=== PATIENT | female | born 1975 | race Hispanic/Latino ===

== ENCOUNTER 2022-06-14 12:39 | Emergency (ER) | payer BC, OTHER ==
--- OUTSIDE RECORDS SUMMARY | 2022-06-14 12:42 | XMS REPORT | Continuity of Care Document ---
:1975 Author Organization [facility] t Address [address] [place] [address] [place] [id number] Care Team Providers Name Role Phone VALENTINA CARVAJAL Attending Clinician Unavailable Payers Payer Name Policy Type Policy Number Effective Date Expiration Date S alexandro [facility] [id number] 2019 00:00:00 Problems This patient has no known problems. Allergies, Adverse Reactions, Alerts Allergy Allergy Status Severity Reaction(s) Onset Inactive Treating Comm ents Source Name Type Date Date Clinician NO KNOWN Drug Active [facility] ALLERG[facility] Medications This patient has no known medications. Procedures This patient has no known procedures. Encounters Start End Encounter Admission Attending Care Care Encounter Source Date/Time Date/Time Type Type Clinicians Facility Department ID 2020-01-03 2020-01-03 Outpatient R [facility] [id number] [facility] 11:20:00 11:20:00 VAL[facility] Results This patient has no known results.
[2022-06-14] MEDS ORDERED: TETANUS & DIPHTHERIA TOX,ADULT 0.5 ML VIAL ONE (13:27)
[2022-06-14] MEDS ORDERED: HYDROCODONE/APAP 5/325 MG TAB ONE (14:27)
--- NOTE | 2022-06-14 14:50 | RAD REPORT ---
EXAM DESCRIPTION: RAD -Hand Left 3 View - 06/14/2022 2:24 pm CLINICAL HISTORY: Left hand pain status post injury FINDINGS: No fracture or dislocation is seen. Soft tissue laceration distal aspect of the second distal phalanx. Radiopaque foreign body is not see n
--- NOTE | 2022-06-14 14:51 | ER ---
Nurse's Notes [facility] Name: Julisa Valdez Age: 46 yrs Sex: Female : 1975 Arrival Date: 06/14/2022 Time: 12:39 Bed 13 Private MD: Jefferson Lincoln F Diagnosis: Laceration without foreign body of left index finger with damage to nail Presentation: 06/14 12:55 Chief complaint: Patient states: "I cut my finger last night cutting up some aa5 vegetables". Reports laceration to left index finger. Coronavirus screen: At this time, the client does not indicate any symptoms associated with coronavirus-19. Ebola Screen: Patient denies travel to an Ebola-affected area in the 21 days before illness onset. Initial Sepsis Screen: Does the patient meet any 2 criteria? No. Patient's initial sepsis screen is negative. Does the patient have a suspected source of infection? No. Patient's initial sepsis screen is negative. Risk Assessment: Do you want to hurt yourself or someone else? Patient reports no desire to harm self or others. Onset of symptoms was June 13, 2022. 12:55 Method Of Arrival: Ambulatory aa5 12:55 Acuity: ANTOINE 4 aa5 Triage Assessment: 13:25 General: Appears in no apparent distress. uncomfortable, Behavior is calm, cooperative, nj1 appropriate for age. 13:25 Neuro: Level of Consciousness is awake, alert, obeys commands, Oriented to person, nj1 place, time, situation. Cardiovascular: Patient's skin is warm and dry. Respiratory: Airway is patent Respiratory effort is even, unlabored. Musculoskeletal: Reports pain in left 2nd digit, distal phalange. Injury Description: Avulsion sustained to left 2nd digit, distal phalange. 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 - Social history:: Smoking status: Patient denies any tobacco usage or history of. Screenin:25 [facility] ED Fall Risk Assessment (Adult) History of falling in the last 3 months, nj1 including since admission No falls in past 3 months (0 pts) Confusion or Disorientation No (0 pts) Intoxicated or Sedated No (0 pts) Impaired Gait No (0 pts) Mobility Assist Device Used No (0 pt) Altered Elimination No (0 pt) Score/Fall Risk Level 0 - 2 = Low Risk Oriented to surroundings, Maintained a safe environment, Hourly rounding (assess needs \\T\\ fall precautionary measures) done. Abuse screen: Denies threats or abuse. Denies injuries from another. Nutritional screening: No deficits noted. Tuberculosis screening: No symptoms or risk factors identified. Assessment: 15:07 Reassessment: Patient appears in no apparent distress at this time. Patient and/or iw family updated on plan of care and expected duration. Pain level reassessed. Patient is alert, oriented x 3, equal unlabored respirations, skin warm/dry/pink. Vital Signs: 12:55 BP 131 / 95; Pulse 87; Resp 16 S; Temp 97.6(TE); Pulse Ox 98% on R/A; Weight 65.32 kg aa5 (R); Height 4 ft. 11 in. (R); 12:55 Body Mass Index 29.08 (65.32 kg, 149.86 cm) aa5 ED Course: 12:40 Patient arrived in ED. am2 12:40 Jefferson Lincoln MD is Private Physician. am2 12:49 [facility] jh7 12:49 Bird Royal DO is Attending Physician. 7 12:54 Arm band placed on. aa5 12:56 Triage completed. aa5 12:58 Shira Vargas, JANICE is Primary Nurse. nj1 13:25 Patient has correct armband on for positive identification. Bed in low position. Call nj1 light in reach. Adult w/ patient. 14:26 XRAY Hand LEFT 3 View In Process Unspecified. EDMS 14:50 Jamil Haddad MD is Referral Physician. [facility] 15:07 No provider procedures requiring assistance completed. Patient did not have IV access iw during this emergency room visit. 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 Exp: nj1 07/10/2023. Lot #: [id number]. } Route: IM; Site: left deltoid; 14:32 Drug: HYDROcodone-acetaminophen PO 5 mg-325 mg 1 tabs Route: PO; nj1 Medication: 13:28 Vaccine Information Statement (VIS) provided today. Questions and/or concerns nj1 addressed. VIS edition date: September 11, 2020. Outcome: 14:50 Discharge ordered by MD. guzman 15:07 Discharged to home ambulatory. iw 15:07 Condition: good 15:07 Discharge instructions given to patient, Instructed on discharge instructions, follow up and referral plans. medication usage, Demonstrated understanding of instructions, follow-up care, medications, Prescriptions given X 3. 15:07 Patient left the ED. iw Signatures: Dispatcher [employer] EDMS Ángela Gutierres RN RN iw Reshma Rosa, RN RN aa5 Lindy Marcum Jennifer, INFORMATION SYSTEMS SUPERVISOR INFORMATION SYSTEMS SUPERVISOR 7 Shira Vargas RN RN nj1
--- NOTE | 2022-06-14 14:52 | EDPHYS ---
Physician Documentation [facility] Name: Julisa Valdez Age: 46 yrs Sex: Female : 1975 Arrival Date: 06/14/2022 Time: 12:39 Bed 13 Private MD: Jefferson Lincoln F ED Physician Bird Royal HPI: 06/14 12:54 This 46 yrs old Female presents to ER via Ambulatory with complaints of Finger jh7 Injury, Laceration. 12:54 Mechanism of injury: Penetrating trauma: inflicted by a knife. Associated injuries: The jh7 patient sustained left index finger, laceration, 2 cm(s). Onset: The symptoms/episode began/occurred last night. 46-year-old female reports that she was cutting vegetables and injured her L index finger and fingernail with a knife. States that she wrapped it and placed Neosporin on it last night at 9 PM when the injury occurred. Full range of motion at this time.. 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 - Social history:: Smoking status: Patient denies any tobacco usage or history of. ROS: 12:54 Constitutional: Negative for fever, chills, and weight loss, Neck: Negative for injury, jh7 pain, and swelling, Cardiovascular: Negative for chest pain, palpitations, and edema, Respiratory: Negative for shortness of breath, cough, wheezing, and pleuritic chest pain, Back: Negative for injury and pain, MS/Extremity: Negative for injury and deformity, Neuro: Negative for headache, weakness, numbness, tingling, and seizure. 12:54 Skin: Positive for laceration(s). 12:54 All other systems are negative. Exam: 12:54 Constitutional: This is a well developed, well nourished patient who is awake, alert, jh7 and in no acute distress. Head/Face: Normocephalic, atraumatic. Neck: Trachea midline, no thyromegaly or masses palpated, and no cervical lymphadenopathy. Supple, full range of motion without nuchal rigidity, or vertebral point tenderness. No Meningismus. Cardiovascular: Regular rate and rhythm with a normal S1 and S2. No gallops, murmurs, or rubs. Normal PMI, no JVD. No pulse deficits. Respiratory: Lungs have equal breath sounds bilaterally, clear to auscultation and percussion. No rales, rhonchi or wheezes noted. No increased work of breathing, no retractions or nasal flaring. Abdomen/GI: Soft, non-tender, with normal bowel sounds. No distension or tympany. No guarding or rebound. No evidence of tenderness throughout. MS/ Extremity: Pulses equal, no cyanosis. Neurovascular intact. Full, normal range of motion. Neuro: Awake and alert, GCS 15, oriented to person, place, time, and situation. Motor strength 5/5 in all extremities. Sensory grossly intact. Normal gait. 12:54 Musculoskeletal/extremity: ROM: intact in all extremities, full active range of motion, Circulation is intact in all extremities. Sensation intact. 12:54 Skin: injury, laceration(s), the wound is approximately 2 cm(s), of the Avulsion laceration of the L dorsal aspect of the index finger with partial avulsion of the medial nail extending to the tip of the digit, no active bleeding at this time. wound is clotted. Vital Signs: 12:55 BP 131 / 95; Pulse 87; Resp 16 S; Temp 97.6(TE); Pulse Ox 98% on R/A; Weight 65.32 kg aa5 (R); Height 4 ft. 11 in. (R); 12:55 Body Mass Index 29.08 (65.32 kg, 149.86 cm) aa5 MDM: 12:49 Patient medically screened. [facility] 15:00 Data reviewed: vital signs, nurses notes, radiologic studies, plain films. I considered [facility] the following discharge prescriptions or medication management in the emergency department Medications were administered in the Emergency Department. See MAR. Independent interpretation of the following test(s) in the Emergency Department X-Ray: My interpretation is no acute fractures. Counseling: I had a detailed discussion with the patient and/or guardian regarding: the historical points, exam findings, and any diagnostic results supporting the discharge/admit diagnosis, the need for outpatient follow up, a hand specialist, to return to the emergency department if symptoms worsen or persist or if there are any questions or concerns that arise at home. ED course: Informed the patient that this kind of laceration could not be repaired due to avulsed tissue. Wound was cleansed and bandaged. She was advised to follow-up with Dr. Haddad.. 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 Exp: nj1 07/10/2023. Lot #: [id number]. } Route: IM; Site: left deltoid; 14:32 Drug: HYDROcodone-acetaminophen PO 5 mg-325 mg 1 tabs Route: PO; nj1 Disposition: 16:52 Co-signature as Attending Physician, Bird FISCHER was immediately available on-site ms3 in the Emergency Department for consultation in the care of the patient. Disposition Summary: 06/14/22 14:50 Discharge Ordered Location: Home [facility] Problem: new [facility] Symptoms: are unchanged [facility] Condition: Stable [facility] Diagnosis - Laceration without foreign body of left index finger with damage to nail [facility] Followup: [facility] - With: Jamil Haddad MD - When: 1 - 2 days - Reason: Recheck today's complaints Discharge Instructions: - Discharge Summary Sheet [facility] - Nonsutured Laceration Care [facility] - Nail Avulsion [facility] Forms: - Medication Reconciliation Form [facility] - Thank You Letter [facility] - Antibiotic Education [facility] - Prescription Opioid Use [facility] Prescriptions: - acetaminophen-codeine 300-15 mg Oral tablet - take 1 tablet by ORAL route every 4 to 6 hours As needed as needed for pain; 15 jh7 tablet; Refills: 0, Product Selection Permitted - Cephalexin 500 mg Oral Capsule - take 1 capsule by ORAL route every 12 hours for 7 days; 14 capsule; Refills: 0, jh7 Product Selection Permitted - Ibuprofen 600 mg Oral Tablet - take 1 tablet by ORAL route every 8 hours As needed take with food; 30 tablet; jh7 Refills: 0, Product Selection Permitted Signatures: Dispatcher [employer] Reshma Tejada, RN RN aa5 Bird Royal DO DO ms3 Naty Leija, COORDINATOR VOLUNTEER SERVICES COORDINATOR VOLUNTEER SERVICES jh7 Shira Vargas, RN RN nj1
[2022-06-14 15:35] VITALS: BP 131/95; TEMP 97.6; O2SAT 98
== END 2022-06-14 15:07 | disposition home or self-care (01) ==
LOC: ER 12:39
DX: S61.311A Laceration without foreign body of left index finger with damage to nail, initial encounter (principal); Z23 Encounter for immunization
CPT/HCPCS: 90471; 90714; 99284